=== PATIENT | female | born 1945 | race Caucasian/White ===

== ENCOUNTER 2018-12-19 16:49 | Inpatient (IN) | payer MEDICARE, OTHER ==
[2018-12-19 19:22] LABS: ANION GAP 18.1 mmol/L (5-15); CHLORIDE,CL 98 mmol/L (98-115); SODIUM,NA 141 mmol/L (136-145)
[2018-12-19] MEDS: Acetaminophen/HYDROcodone 325-5 MG Tab PO PRN (21:07)
[2018-12-20] MEDS ORDERED: Ondansetron 4 MG Tab.DIS PO PRN (08:31)
[2018-12-20] MEDS ORDERED: Psyllium Husk Powder Sugar Free 5.85 GM Packet PO PRN (08:31)
[2018-12-20] MEDS ORDERED: Diclofenac Sodium 1% Gel 100 GM Tube TOP PRN (08:31)
[2018-12-20] MEDS ORDERED: Calcium Carbonate 500 MG Tab.Chew PO PRN (08:31)
[2018-12-20] MEDS ORDERED: Prochlorperazine 5 MG Tab PO PRN (08:31)
[2018-12-20] MEDS ORDERED: BETAMETHASONE DIPROPIONATE TOP SCH (09:00)
[2018-12-20] MEDS ORDERED: PENTOXIFYLLINE 400 MG PO SCH (09:00)
[2018-12-20] MEDS ORDERED: Aspirin 81 MG Tab.Chew PO SCH (09:00)
[2018-12-20] MEDS ORDERED: OLANZapine 5 MG Tab PO SCH (09:00)
[2018-12-20] MEDS: Cholecalciferol (Vitamin D3) 1,000 Unit Tab PO SCH (09:51)
[2018-12-20] MEDS: Vitamin B6-pyridOXINE 50 MG Tab PO SCH (09:51)
[2018-12-20] MEDS ORDERED: OLANZapine 5 MG Tab PO PRN (10:15)
[2018-12-20] MEDS ORDERED: Aspirin 81 MG Tab.EC PO SCH (10:47)
[2018-12-20] MEDS: Levothyroxine 112 MCG Tab PO SCH (10:56)
[2018-12-20] MEDS: Naloxegol Oxalate 25 MG Tab PO SCH (10:56)
[2018-12-20] MEDS: Acetaminophen/HYDROcodone 325-5 MG Tab PO PRN (10:57)
--- NOTE | 2018-12-20 12:28 | PN ---
12/20/2018 PATIENT NAME: MARY ROBERSON CHIEF COMPLAINT: Radiation burn, left upper chest wall with pain. BRIEF HISTORY: This 73-year-old female, I admitted into the inpatient hospital yesterday due to possible infection or radiation burn with pain management. The patient has been having this radiation burn on and off for about 5 years; however, I had seen and evaluated her at the [facility] with significant pain with possible infection. 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 She developed cancer of the right breast while receiving Femara. This was all discontinued in 10/2018. She started chemotherapy recently in 11/2018. She is a patient of Dr. Woods. The patient was complaining of a rash to her left upper anterior chest wall, quite painful. She is concerned with infection. She attempted at home to self-dress; however, due to the pain, this was very difficult for her. She does have a history of hypothyroidism, osteoarthritis of the hands along with hyperlipidemia, histories of DVT in her popliteal vein, lymphedema of her left arm, for which she uses a lymphedema sleeve. She is a high risk for candidal sepsis due to antineoplastic chemotherapy as she recently underwent. She also has osteopenia. Update today, the patient is doing somewhat better. Consultation has been placed for Wound Care here at the [facility]. She is on pain management of orals, seemed to be adequately controlled. She does have a significant radiation burn to the left upper chest, which is covered with dressing and she was using home Silvadene cream, which has . REVIEW OF SYSTEMS: LUNGS: Denies any cough or shortness of breath. CV: Denies any chest pain or any edema. INTEGUMENTARY: Radiation burn, left upper chest including the left base of her neck extending down into her left breast. PHYSICAL EXAMINATION: VITAL SIGNS: Stable, temperature 97.8, blood pressure 117/66, heart rate 76 and regular, O2 sats 93% on room air, respiratory rate 16. LUNGS: Clear to auscultation. No CVA tenderness. CV: Regular rate and rhythm. INTEGUMENTARY: Left upper chest, base of neck extending down into the left breast, stage II radiation burn with notable slough and open wounds and weeping, moist in appearance noted. LABORATORY DATA: White count 5.7, hemoglobin 11.6, hematocrit 33.6. Sodium, potassium, BUN, and creatinine all normal. Calcium 9.1, estimated GFR greater than 60. IMPRESSION/PLAN: Stage II radiation burn, left upper chest wall. Culture taken. Wound consultation today. Dressing change with debridement of slough. Hydrocodone for anticipation of dressing changes. Likely anticipate discharge within 24-48 hours but likely will need home care services. Social consultation placed in today for home wound care therapy. We will withhold any systemic antibiotics at this time. /[id number]/MODL
[2018-12-20] MEDS ORDERED: Warfarin 5 MG Tab PO SCH (18:00)
[2018-12-21 06:39] VITALS: BP 131/81
[2018-12-21] MEDS: Levothyroxine 112 MCG Tab PO SCH (08:05)
[2018-12-21] MEDS: Cholecalciferol (Vitamin D3) 1,000 Unit Tab PO SCH (10:43)
[2018-12-21] MEDS: Naloxegol Oxalate 25 MG Tab PO SCH (10:44)
[2018-12-21] MEDS: Vitamin B6-pyridOXINE 50 MG Tab PO SCH (10:44)
--- NOTE | 2018-12-21 10:45 | PCM.DCSUM1 ---
Discharge Summary - Hospital Course Diagnosis: Stroke: No - Discharge Data Discharge Date: 12/21/18 Discharge Disposition: Home, Self-Care 01 Condition: Good - Patient Summary/Data Consults: Consultations 12/19/18 16:59 Consult to Site Head [CONS] Routine PT Evaluation and Treatment [CONS] Routine 12/20/18 10:20 Consult to Case Management/Die Mechanic [CONS] Routine - Patient Instructions Activity: As Tolerated Driving: May Drive Today Showering/Bathing: May Shower Wound/Incision Care: Keep Operative Site/Wound Site Clean and Dry Notify Provider of: Fever, Increased Pain Other/Special Instructions: Wound care instructions. Suggest home health change dressing 2x/week; on 12/23/18, of this week, then again on 12/26/18. cleanse wound with saline and gauze, then placed Aquacel Ag over the woundbed for absorption, then cut the duoderm to fit better over the wound for more absorption and moist environment for superficial wounds for wound healing. Place a film dressing over the crease of the duoderms, where they meet, to keep possible drainage from seeping out of dressing. If largest wound is draining more than expected, place more absorptive dressing on with the Aquacel and covere with Duoderm. The back and axillary wounds only covere with duoderm. - Discharge Plan *PRESCRIPTION DRUG MONITORING PROGRAM REVIEWED*: Not Applicable *COPY OF PRESCRIPTION DRUG MONITORING REPORT IN PATIENT SELENA: Not Applicable Prescriptions/Med Rec: Acetaminophen/HYDROcodone [Butler 325-5 MG] 1 - 2 tab PO Q6H PRN #20 tablet PRN Reason: Pain Home Medications: Home Meds Calcium Carbonate [Tums] 1,000 mg PO DAILY PRN 02/17/17 [History] Letrozole 2.5 mg PO DAILY 07/27/18 [History] Cholecalciferol (Vitamin D3) [Vitamin D3] 2,000 unit PO DAILY 12/19/18 [History] Diclofenac Sodium [Voltaren 1% Gel] 2 gm TOP BEDTIME PRN 12/19/18 [History] Levothyroxine 112 mcg PO ACBREAKFAST 12/19/18 [History] OLANZapine [ZyPREXA] 10 mg PO DAILY PRN 12/19/18 [History] Ondansetron [Zofran] 8 mg PO Q8H PRN 12/19/18 [History] Pentoxifylline [TRENtal] 400 mg PO BID 12/19/18 [History] Prochlorperazine Maleate [Compazine] 10 mg PO QID PRN 12/19/18 [History] Psyllium [Metamucil SF] 1 tbsp PO DAILY PRN 12/19/18 [History] Pyridoxine HCl (Vitamin B6) [Pyridoxine HCl] 100 mg PO DAILY 12/19/18 [History] Aspirin [Halfprin] 81 mg PO DAILY 12/20/18 [History] Warfarin [Coumadin] 5 mg PO MOWEFR@1800 12/20/18 [History] Warfarin [Coumadin] 7.5 mg PO SUTUTHSA@1800 12/20/18 [History] Acetaminophen/HYDROcodone [Butler 325-5 MG] 1 - 2 tab PO Q6H PRN #20 tablet 12/21 [Rx] - Discharge Summary/Plan Comment DC Time >30 min.: Yes Discharge Summary/Plan Comment: Final diagnosis --Radiation burn second-degree right upper chest wall axillary right breast area. Brief history 73-year-old female with long-standing breast CA recently underwent chemotherapy however she came to the [facility] and I had seen her due to significant pain and a burn sustained years ago from radiation therapy she thought was infected. She had been attempting to clean the wound however was in so much pain that she cannot do this on her own. Due to the patient being medial compromised with significant pain and inability to adequately take care of her wounds at home I had admitted her to the [facility] for wound care dressing changes, debridement, pain management with social organization professor and possible home health care upon discharge. Hospital summary course Patient did well, she was medicated with hydrocodone prior to debridement and surgical dressing changes. He was consulted with wound care physical therapy and debridement and dressing changes were performed. Lidocaine gel was also used. Patient tolerated procedures well and the wounds did significantly improve. 25% of the wounds are nice epithelial tissue and was able to leave them open to air now; largest wound needed debridement; necrotic wounds were 50% slough and were able to debride some of this off prior to dressing change. Her wounds were cleansed wound with saline and gauze, then placed lidocaine gel on the wound- bed for pain relief prior to debridement. Removed area of slough of approx 7 cm x 2 cm total with scalpel and forceps: Superficial wound. The wound on the back of the shoulder was at least 0.2 cm deep but no slough, but granulating tissue noted after removal of the duoderm from the wound. The axillary wound was 50% necrotic, 25% slough and was able to remove 25% slough to show good granulating tissue underneath. There was minimal bleeding to the wound with debridement, but nicely clotted and tolerated this well. Re-cleansed wound with saline and gauze, then placed Aquacel Ag over the woundbed for absorption, the duoderm was cut to fit better over the wound for more absorption and moist environment for superficial wounds for wound healing. Placed a film dressing over the crease of the duoderms, where they met, to keep possible drainage from seeping out of dressing. Pt had some tingling pain afterwards, most likely from lidocaine. Wound care instructions. Suggest home health change dressing 2x/week; on 12/23/18, of this week, then again on 12/26/18. Cleanse wound with saline and gauze, then placed Aquacel Ag over the woundbed for absorption, then cut the duoderm to fit better over the wound for more absorption and moist environment for superficial wounds for wound healing. Place a film dressing over the crease of the duoderms, where they meet, to keep possible drainage from seeping out of dressing. If largest wound is draining more than expected, place more absorptive dressing on with the Aquacel and covere with Duoderm. The back and axillary wounds only covere with duoderm. Disposition Patient will be discharged from the hospital and receive home health services. Specific instructions as far as wound care and supplies were given to the patient and home health nursing. His [id number] encounter for home health services as patient will need nursing services to aid in wound care assessment and dressing changes. Patient is homebound due to high risk of infection due to immunocompromised host and exacerbation of her wound care. I will eventually see her back in the [facility] after home health care feels the patient can be released from homebound status. - Patient Data Vitals - Most Recent: Last Vital Signs Temp 99.2 F 12/21/18 06:38 Pulse 85 12/21/18 06:38 Resp 16 12/21/18 06:38 BP 131/81 12/21/18 06:38 Pulse Ox 93 L 12/21/18 06:38 Weight - Most Recent: 171 lb 1.259 oz I&O - Last 24 hours: Intake & Output 12/20/18 12/21/18 12/21/18 22:59 06:59 14:59 Intake Total 540 150 Output Total 1200 2100 Balance -660 -1950 Lab Results - Last 24 hrs: Laboratory Results - last 24 hr 12/21/18 Range/Units 07:55 PT TNP INR 1.4 H (0.9-1.1) FABI Results - Last 24 hrs: Microbiology 12/19/18 22:00 Gram Stain - Final Wound - Chest Med Orders - Current: Current Medications Hydrocodone Bitart/Acetaminophen (Butler 325-5 Mg) 0 tab PO Q6H PRN PRN Reason: Pain Last Admin: 12/20/18 10:57 Dose: 2 tab Aspirin (Halfprin) 81 mg PO DAILY [facility] Calcium Carbonate/Glycine (Tums) 1,000 mg PO DAILY PRN PRN Reason: Indigestion Cholecalciferol (Vitamin D3) 2,000 units PO DAILY [facility] Last Admin: 12/20/18 09:51 Dose: 2,000 units Diclofenac Sodium (Voltaren 1% Gel) 2 gm TOP BEDTIME PRN PRN Reason: Pain Right Knee Letrozole (Femara) 2.5 mg PO DAILY [facility] Last Admin: 12/20/18 09:51 Dose: 2.5 mg Levothyroxine Sodium (Levothyroxine) 112 mcg PO ACBREAKFAST [facility] Last Admin: 12/21/18 08:05 Dose: 112 mcg Naloxegol (Movantik) 25 mg PO DAILY [facility] Last Admin: 12/20/18 10:56 Dose: 25 mg Olanzapine (Zyprexa) 10 mg PO DAILY PRN PRN Reason: nausea Ondansetron HCl (Zofran Odt) 8 mg PO Q8H PRN PRN Reason: Nausea Prochlorperazine Maleate (Compazine) 10 mg PO QID PRN PRN Reason: Nausea Psyllium Husk (Metamucil Sugar Free) 1 pkt PO DAILY PRN PRN Reason: constipation Pyridoxine HCl (Vitamin B6-Pyridoxine) 100 mg PO DAILY [facility] Last Admin: 12/20/18 09:51 Dose: 100 mg Warfarin Sodium (Coumadin) 5 mg PO [email or web address] [facility] Warfarin Sodium (Coumadin) 7.5 mg PO [email or web address] [facility] Last Admin: 12/20/18 18:10 Dose: 7.5 mg Discontinued Medications Aspirin (Aspirin) 81 mg PO DAILY [facility] Last Admin: 12/20/18 09:51 Dose: 81 mg Olanzapine (Zyprexa) 10 mg PO DAILY [facility] Last Admin: 12/20/18 11:03 Dose: Not Given
[2018-12-21] MEDS ORDERED: Warfarin 5 MG Tab PO SCH (18:00)
== END 2018-12-21 11:15 | disposition home or self-care (01) | DRG 935 ==
LOC: KA.MS 19:30
PROVIDERS: ADMIT Nurse Practitioner Family; ATTEND Family Medicine
DX: T21.21XA Burn of second degree of chest wall, initial encounter (principal); C77.9 Secondary and unspecified malignant neoplasm of lymph node, unspecified; C79.2 Secondary malignant neoplasm of skin; T31.0 Burns involving less than 10% of body surface; Y84.2 Radiological procedure and radiotherapy as the cause of abnormal reaction of the patient, or of later complication, without mention of misadventure at the time of the procedure; C50.912 Malignant neoplasm of unspecified site of left female breast; C50.911 Malignant neoplasm of unspecified site of right female breast; E03.9 Hypothyroidism, unspecified; E78.5 Hyperlipidemia, unspecified; E78.00 Pure hypercholesterolemia, unspecified; M15.9 Polyosteoarthritis, unspecified; H35.30 Unspecified macular degeneration; I89.0 Lymphedema, not elsewhere classified; M85.80 Other specified disorders of bone density and structure, unspecified site; Z79.899 Other long term (current) drug therapy; Z79.82 Long term (current) use of aspirin; Z86.718 Personal history of other venous thrombosis and embolism; Z88.6 Allergy status to analgesic agent; Z88.8 Allergy status to other drugs, medicaments and biological substances
CPT/HCPCS: 36415; 36416; 80048; 85025; 85610; 87070; 87205; 97161-GP; 97597-GP; A9270-GY